=== PATIENT | male | born 1965 | race Caucasian/White ===

== ENCOUNTER 2021-01-09 09:39 | Emergency (ER) | payer OTHER ==
[2021-01-09 10:01] VITALS: BP 137/94; PULSE 83; TEMP 98.4; BMI 37.5
[2021-01-09] MEDS ORDERED: DIPHTH,PERTUSS(ACELL),TET 0.5 ML DISP.SYRIN IM ONE ×2 (10:40→10:46)
== END 2021-01-09 11:04 | disposition home or self-care (01) ==
LOC: FER 09:39
PROC: 0HQ0XZZ Repair Scalp Skin, External Approach (ICD-10-PCS; principal; 2021-01-09)
PROC: 3E0234Z Introduction of Serum, Toxoid and Vaccine into Muscle, Percutaneous Approach (ICD-10-PCS; 2021-01-09)
DX: S01.01XA Laceration without foreign body of scalp, initial encounter (principal)
CPT/HCPCS: 90715; 99284-25